=== PATIENT | male | born 1940 | race Two or more races ===

== ENCOUNTER 2017-07-19 17:11 | Emergency (ER) | payer SELFPAY ==
[2017-07-19 17:30] VITALS: BP 142/76; RESP 16; TEMP 98.1
--- NOTE | 2017-07-19 17:39 | EDPHY ---
H & P Smoking Status: Former smoker Time Seen by Provider: 07/19/17 17:33 HPI/ROS: CHIEF COMPLAINT: left 5th finger injury HISTORY OF PRESENT ILLNESS: 77-year-old male right-hand dominant visiting from [place] complaining of acute left distal 5th injury after he sustained a mechanical fall this morning stopping his left 5th digit. Intact skin. No paresthesia. Positive ecchymotic discoloration. No shortening PHYSICAL EXAM (Prior to examination, patient consented to physical exam, hands were washed and my usual and customary physical exam procedures followed) 1) GENERAL: Well-developed, well-nourished, alert and oriented. Appears to be in no acute distress. 2) HEAD: Normocephalic 3) HEENT: Pupils equal, round, reactive to light bilaterally. 4) LUNGS: Breathing comfortably. 5) MUSCULOSKELETAL: Tender to palpation left 5th digit distal phalanx. No shortening no malrotation. Normal cascading of digit. Soft compartments. Normal coloration. Flexor extensor function at the MCP PIP D IP present with no deficits 6) SKIN: intact. Ecchymosis noted to the distal phalanx with no subungual hematoma 7) VASCULAR: pulses and cap refill present are brisk 8) NEUROLOGIC: Radial, ulnar, median nerve function intact with no deficits appreciated on exam DIFFERENTIAL DIAGNOSIS: in no particular order including but not limited to fracture, sprain, dislocation Procedure: Splint A seth-tape and aluminum finger splint splint was applied by ER lube technician. After application of the splint I returned and re-examined the patient. The splint was adequately immobilizing the joint and distal to the splint the patient's circulation and sensation were intact. Patient shows no signs of compartment syndrome. Was given orthopedic precautions. (Izaiah Monsivais) Constitutional: Initial Vital Signs Temperature (C) 36.7 C 07/19/17 17:26 Heart Rate 82 07/19/17 17:26 Respiratory Rate 16 07/19/17 17:26 Blood Pressure 142/76 H 07/19/17 17:26 O2 Sat (%) 91 L 07/19/17 17:26 O2 Delivery Mode Room Air Allergies/Adverse Reactions: No Known Allergies Allergy (Unverified 07/19/17 17:24) Home Medications: Medication Instructions Recorded Enalapril Maleate 07/19/17 Glyburide 07/19/17 Metformin HCl 07/19/17 MDM/Departure - MDM Imaging Results: Images reviewed by myself (Izaiah Monsivais) ED Course/Re-evaluation: The patient was evaluated and managed by the physician liaison inspection laboratory assistant. I have reviewed this chart and I agree with the findings and plan of care as documented , as indicated by my signature. I am the secondary supervising physician. ( Beatriz Dawson) - Depart Disposition: Home, Routine, Self-Care Clinical Impression: Sprain of finger Condition: Good Instructions: Finger Sprain (ED) Additional Instructions: Return to the ER immediately if you experience discoloration, have worsening pain, numbness, tingling, or any other symptoms that concern you. If you received x-rays in the emergency department today, be advised, that ligamentous , tendon, muscular, and other non-bony injury cannot be fully ruled out. Try to keep your affected extremity elevated above the level of your chest, and keep cold packs on the affected area, for the next 48 hours. Regrese inmediatamente a la estuardo de emergencias si experimenta decoloracion, dolor, entumecimiento, hormigueo o cualquier otro sintoma que le afecte. Si recibio radiografias en el departmento de emergencias hoy en valdo, tenga en cuenta que las lesiones ligamentarias, tendinales, musculares y ortras lesiones no sean no pueden descartarse completamente. Trate de mantener krishnan extremidad afectada elevada por encima del nivel de krishnan pecho, y mantener los paquetes de frio en el area afectada, duarante las proximas 48 horas. Referrals: Sarah Elias MD [Medical Doctor] - 5-7 days, call for appt. Print Language: Green[place]ic
[2017-07-19 18:38] VITALS: PULSE 81; O2SAT 93
== END 2017-07-19 18:38 | disposition home or self-care (01) ==
DX: S63.617A Unspecified sprain of left little finger, initial encounter (principal); Z87.891 Personal history of nicotine dependence; W18.39XA Other fall on same level, initial encounter; Y99.8 Other external cause status
CPT/HCPCS: L3925